=== PATIENT | male | born 1945 | race Caucasian/White ===

== ENCOUNTER 2018-08-26 06:41 | Day surgery (SDC) | payer MEDICARE, OTHER ==
[~2018-08-26] VITALS: Ht 177.8 cm; Wt 119.5 kg
[~2018-08-26 06:41] MED LIST: ASPIRIN EC81 M1 PO; CALCIUM 500 + D1 TAB PO; FLINTSTONE1 TAB.CHEW PO; FLOMAX0.4 MG PO; HYZAAR 50-12.51 TAB PO; SYNTHROID200 MC1; ZOCOR20 MG PO
[2018-08-26 07:07] LABS: BASOPHILS 0.5 % (0-2); EOSINOPHILS 2.8 % (0-7); HEMATOCRIT 48.1 % (42.0-54.0); HEMOGLOBIN 16.8 g/dL (13.5-17.5); IMMATURE GRANULOCYTES 0.2 % (0-5); LYMPHOCYTES 23.5 % (15-50); MCH 30.6 pg (26.0-34.0); MCHC 34.9 g/dL (31.0-37.0); MCV 87.6 fL (80.0-100.0); MEAN PLATELET VOLUME 9.5 fL (7.4-10.4); MONOCYTES 9.4 % (2-11); NEUTROPHILS 63.6 % (40-80); PLATELET COUNT 179 10x3/uL (130-400); RBC 5.49 10x6/uL (4.20-6.10); RDW 13.4 % (11.5-14.5); WBC 6.1 10x3/uL (4.8-10.8)
[2018-08-26 08:07] LABS: APTT 28.7 SECONDS (22.8-39.4); INR 0.98 (0.85-1.17); PROTIME 12.5 SECONDS (11.6-15.0)
[2018-08-26 08:43] VITALS: BP 122/96; Ht 177.8 cm; Wt 119.5 kg
--- NOTE | 2018-08-26 12:40 | NUR ---
REC'D FROM [facility]. FAMILY AT BEDSIDE. DRESSING CDI TO LEFT GROIN. ICE WATER BROUGHT TO PT.
--- NOTE | 2018-08-26 13:10 | NUR ---
TIFF OVALLES BROUGHT TO PT. FAMILY AT BEDSIDE. NO URGE TO VOID.
--- NOTE | 2018-08-26 13:40 | NUR ---
TOLERATED DIET. STILL NO URGE TO VOID. NO CHANGE IN DRESSING TO LEFT GROIN. FAMILY AT BEDSIDE.
--- NOTE | 2018-08-26 14:00 | NUR ---
ICE WATER BROUGHT TO PATIENT.
--- NOTE | 2018-08-26 14:20 | NUR ---
UP TO BATHROOM. VOIDED WITHOUT DIFFICULTY. IV DC'D WITH CATHETER INTACT.
--- NOTE | 2018-08-26 14:30 | NUR ---
WRITTEN AND VERBAL DC INST. GIVEN TO PT ALONG WITH RX. VERBALIZED UNDERSTANDING.
--- NOTE | 2018-08-26 14:40 | NUR ---
DC'D HOME WITH FAMILY VIA PRIVATE VEHICLE. TAKEN TO VEHICLE VIA WC. STABLE AT TIME OF DC.
--- NOTE | 2018-08-31 17:31 | OP ---
PATIENT NAME: FITZ SPARKS MEDICAL RECORD: [id number] :45 LOCATION:D.OPS ADMISSION DATE: SURGEON: FITZ SWAN MD DATE OF OPERATION: 08/26/2018 PREOPERATIVE DIAGNOSIS: Recurrent sinus after a hernia repair many years ago (1981). POSTOPERATIVE DIAGNOSES: Recurrent sinus after a hernia repair many years ago (1981), sinus secondary to a piece of suture material at the base of the sinus. PROCEDURE: Exploration of sinus tract with removal of foreign body. SURGEON: Fitz Swan MD BOARD HANDLER: None. BLOOD LOSS: Minimal. ANESTHESIA: General. COMPLICATIONS: None. The risks, possible complications and alternatives to the procedure were explained to the patient. He elects to proceed. OPERATIVE COURSE: The patient was conveyed the operating room electively on 08/26/2018. General anesthesia was induced by the anesthesia staff. The left groin was sterilely prepped and draped. Utilizing a curette, I performed curettage of the sinus tract. At the base of the sinus tract was a single piece of suture material, which was removed in its entirety. I examined the wound. I could detect no other foreign body. A sterile dressing was then applied. The patient will be dismissed home on [place] for pain. As I have told him, he may develop recurrent infections occasionally due to these pieces of suture material, which appeared to occasionally begin to fester and I will see him in the office in about 3 weeks. TRANSINT:[id number] Voice Confirmation ID: [id number] DOCUMENT ID: [id number] FITZ SWAN MD at 1732 CC: GAGE MANUEL MD and HEENA CAVANAUGH [id number] DICTATION DATE: 08/26/18 1258 [employer] OPERATOR: 08/26/18 1335 [facility] 08/26/18 [facility] [address] [place] [address]
== END 2018-08-26 14:40 | disposition home or self-care (01) ==
LOC: D.OPS 06:41 → D.PAN 09:30 → D.OPS 14:40
PROVIDERS: Anesthesiology; ATTEND Surgery
DX: T81.83XA Persistent postprocedural fistula, initial encounter (principal); Z01.812 Encounter for preprocedural laboratory examination

== ENCOUNTER → 2020-10-08 08:25 | Outpatient (CLI) | payer MEDICARE, OTHER ==
[2018-08-26 08:43] VITALS: BMI 37.8
== END | disposition home or self-care (01) ==
LOC: D.CT 08:25
PROVIDERS: ATTEND Legal Medicine
DX: C43.30 Malignant melanoma of unspecified part of face (principal)